=== PATIENT | male | born 1955 | race Caucasian/White ===

== ENCOUNTER → 2022-11-10 11:10 | Outpatient (BNVA) | payer MEDICARE, OTHER, SELFPAY | PROVIDERS: Visit Provider Dermatology | DX: C44.311 Basal cell carcinoma of skin of nose (principal) | CPT/HCPCS: 99212 ==

== ENCOUNTER → 2023-04-07 08:56 | Outpatient (BNVA) | payer MEDICARE, OTHER, SELFPAY | PROVIDERS: Visit Provider Nurse Practitioner Family | DX: Z85.828 Personal history of other malignant neoplasm of skin (principal); L82.0 Inflamed seborrheic keratosis; L91.8 Other hypertrophic disorders of the skin; L82.1 Other seborrheic keratosis; L81.4 Other melanin hyperpigmentation; L57.8 Other skin changes due to chronic exposure to nonionizing radiation | CPT/HCPCS: 11200; 17110; 99213 ==

== ENCOUNTER → 2023-11-29 09:28 | Outpatient (BNVA) | payer MEDICARE, OTHER, SELFPAY | PROVIDERS: PCP Family Medicine; Visit Provider Family Medicine | DX: E11.9 Type 2 diabetes mellitus without complications (principal) | CPT/HCPCS: 80053; 80061; 83036; 85025 ==

== ENCOUNTER → 2024-03-14 09:04 | Outpatient (BNVA) | payer MEDICARE, OTHER, SELFPAY | PROVIDERS: PCP Family Medicine; Visit Provider Family Medicine | DX: N40.1 Benign prostatic hyperplasia with lower urinary tract symptoms (principal); N13.8 Other obstructive and reflux uropathy; E11.9 Type 2 diabetes mellitus without complications | CPT/HCPCS: 80053; 83036; 84403 ==

== ENCOUNTER 2025-03-08 13:30 | Outpatient (CLI) | payer MEDICARE, OTHER, SELFPAY | END 2025-03-08 13:31 | disposition home or self-care (01) | LOC: SLEEP 13:35 | PROVIDERS: PCP Electrodiagnostic Medicine; Referring Provider Electrodiagnostic Medicine; Visit Provider Internal Medicine Pulmonary Disease | DX: G47.33 Obstructive sleep apnea (adult) (pediatric) (principal); G47.36 Sleep related hypoventilation in conditions classified elsewhere | CPT/HCPCS: G0399 ==

== ENCOUNTER 2025-03-29 09:20 | Outpatient (CLI) | payer MEDICARE, OTHER, SELFPAY ==
--- NOTE | 2025-03-29 09:28 | MRR_ITS ---
PROCEDURE INFORMATION: Exam: MR Left Upper Extremity Joint Without Contrast; Shoulder Exam date and time: 03/29/2025 9:37 AM Age: 69 years old Clinical indication: Pain; Left; Prior surgery; Surgery date: 6+ months; Surgery type: Lt bicep reattach at elbow; Injured lt shoulder folding and pushing wheelchair that turned and fell on side; Additional info: Rotator cuff syndrome of left shoulder TECHNIQUE: Imaging protocol: Magnetic resonance imaging of the left upper extremity without contrast. Exam focused on the shoulder. COMPARISON: CR XR shoulder LT min 2V* [id number] 12/06/2024 12:52 PM FINDINGS: ROTATOR CUFF: There is mild thickening and T2 hyperintensity involving the supraspinatus tendon compatible with tendinosis. No discrete tear is seen. The infraspinatus, subscapularis, and teres minor muscles and tendons appear intact. BICEPS TENDON: There is mild thickening and increased signal within the proximal biceps tendon. The portion within the bicipital groove is normal in caliber and signal. There is a small focus of intermediate signal adjacent to the biceps tendon within the bicipital groove measuring approximately 6 mm transverse dimension by 16 mm in length (series 3, image 18, series 8, image 15) which could represent focal inflammation versus possible small hematoma or loose body. ACROMION AND OSSEOUS OUTLET: Type 2 acromion with moderate anterior and very mild lateral downsloping. [id number] degenerative and hypertrophic changes involving the acromioclavicular joint. GLENOID LABRUM: There is diffuse irregularity of the ligamentous labrum which could be degenerative. A focal tear is difficult to exclude on this noncontrast study. OSSEOUS STRUCTURES: There is mild narrowing of the glenohumeral joint with diffuse thinning of the articular cartilage, subchondral sclerosis, and small marginal spurs, particularly along the inferior aspect. There are subchondral cysts within the inferior osseous glenoid. No evidence of acute fracture or suspicious osseous lesion. SOFT TISSUES: Very mild T2 hyperintensity within the subacromial/subdeltoid bursa compatible with very mild bursitis. MR/MR shoulder LT wo con* [id number] IMPRESSION: 1. Mild supraspinatus tendinosis. No discrete tear seen. 2. Mild thickening of the proximal biceps tendon suspicious for mild tendinopathy. The portion within the bicipital groove appears normal in caliber and signal. A 6 mm transverse by 16 mm length focus of intermediate signal is seen within the bicipital groove adjacent to the biceps tendon which could represent focal inflammation, possible small hematoma, or loose body. 3. 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 4. Type 2 acromion with moderate anterior and very mild lateral downsloping. This predisposes to clinical impingement syndrome. 5. Very mild subacromial/subdeltoid bursitis. 6. Diffuse irregularity of the ligamentous labrum which could be degenerative. If there is clinical concern for labral tear, follow-up MRI with intra-articular contrast may be helpful.
== END 2025-03-29 09:21 | disposition home or self-care (01) ==
PROVIDERS: PCP Electrodiagnostic Medicine; Visit Provider Electrodiagnostic Medicine
DX: M75.102 Unspecified rotator cuff tear or rupture of left shoulder, not specified as traumatic (principal); M75.82 Other shoulder lesions, left shoulder; M67.814 Other specified disorders of tendon, left shoulder; M25.812 Other specified joint disorders, left shoulder; M19.012 Primary osteoarthritis, left shoulder; M75.42 Impingement syndrome of left shoulder; M75.52 Bursitis of left shoulder
CPT/HCPCS: 73221